=== PATIENT | male | born 1955 | race Caucasian/White ===

== ENCOUNTER 2020-11-12 16:55 | Outpatient (CLI) | payer BC, MEDICARE ==
[~2020-11-12 16:55] MED LIST: AMLO-211 PO; ASPI-963 PO; ATOR-2 PO; CARV-39 PO; CHOL10003 PO; DEXA4TAB66 PO; GLIM4TAB8 PO; HYDR-3343 PO; INSU100I28 INJ; LISI-170 PO; MAGN100T3 PO; MYCO500T3 PO; SITA1TAB5 PO; SODI650T PO; TACR1CAP5 PO
== END 2020-11-12 23:59 | disposition home or self-care (01) ==
LOC: RAD 16:55
PROVIDERS: ATTEND Internal Medicine Nephrology
DX: R60.9 Edema, unspecified (principal); I12.9 Hypertensive chronic kidney disease with stage 1 through stage 4 chronic kidney disease, or unspecified chronic kidney disease; E11.22 Type 2 diabetes mellitus with diabetic chronic kidney disease; E78.00 Pure hypercholesterolemia, unspecified; D64.9 Anemia, unspecified; N18.1 Chronic kidney disease, stage 1; D89.9 Disorder involving the immune mechanism, unspecified; Z94.0 Kidney transplant status
CPT/HCPCS: 93970

== ENCOUNTER 2020-12-03 09:32 | Inpatient (IN) | payer BC, MEDICARE ==
[~2020-12-03] VITALS: Ht 170.2 cm; Wt 91.0 kg
--- NOTE | 2020-12-03 09:49 | NUR ---
PT PLACED ON ALL MONITORING DEVICES IN ROOM. AT BS ASSISTED WITH PROVIDING HX OF SX. PT REPORTS OF LEG SWELLING SINCE 11/11, SEEN BY PROFESSOR OF VISUAL ARTS AT THAT TIME, NO NEW DIAGNOSES. SEEN AGAIN ON 11/30/20 FOR INCREASED LEG SWELLING AND SOB. PRESCRIBED LASIX. 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 PER TRIAGE, RA SAT 77%, PLACED ON 6LITERS OXYGEN VIA NC WITH SAT NOW AT 98%. ERP AT BS. CALL LIGHT WITHIN REACH.
--- NOTE | 2020-12-03 09:50 | NUR ---
RESP ISOLATION CART AND SIGNAGE IN PLACE. COVID TEST PENDING.
[2020-12-03] MEDS ORDERED: FURO40TA6 PO (09:58)
--- NOTE | 2020-12-03 10:30 | NUR ---
US AT BS. LABS DRAWN BY [email or web address].
[2020-12-03 10:34] LABS: RAPID INFLUENZA A Negative (Negative); RAPID INFLUENZA B Negative (Negative)
[2020-12-03 10:48] LABS: ALANINE AMINOTRANSFERASE 14 U/L (12-78); ALBUMIN 3.5 g/dL (3.4-5.0); ANION GAP 3 mmol/L (5-15); CALCIUM 9.2 mg/dL (8.5-10.1); CHLORIDE 104 mmol/L (98-107); CREATININE 1.12 mg/dL (0.7-1.3)
[2020-12-03 10:52] LABS: ALKALINE PHOSPHATASE 52 U/L (45-117); BILIRUBIN,TOTAL 0.9 mg/dL (0.2-1.0); TOTAL PROTEIN 5.9 g/dL (6.4-8.2); TROPONIN I < 0.015 ng/mL (0.000-0.045)
--- NOTE | 2020-12-03 10:55 | NUR ---
CONTINUE TO AWAIT LAB AND US RESULTS. PT COMFORTABLE AT THIS TIME. URINAL PROVIDED, WARM BLANKET OFFERED. VSS/UPDATED IN COMPUTER. O2 SAT AT 98% ON 6LITERS VIA NC. O2 REDUCED TO 3LITERS, CONTINUE TO MONITOR.
[2020-12-03 11:07] LABS: BASOPHILS % (AUTO) 1 % (0-1); EOSINOPHILS % (AUTO) 2 % (1-7); LYMPHOCYTES % (AUTO) 11 % (22-44); MEAN CORPUSCULAR HEMOGLOBIN 26.4 pg (27.5-34.5); MEAN CORPUSCULAR HGB CONC 31.9 g/dL (33.2-36.2); MEAN PLATELET VOLUME 8.2 fL (7.4-10.4); MONOCYTES % (AUTO) 10 % (2-9); NEUTROPHILS % (AUTO) 77 % (42-75); PLATELET COUNT 132 x10^3/uL (130-400); RED BLOOD COUNT 4.07 x10^6/uL (4.38-5.82); RED CELL DISTRIBUTION WIDTH 16.4 % (9.4-14.8)
--- NOTE | 2020-12-03 11:27 | NUR ---
IV PLACED FOR ADMISSION. BC X 1 DRAWN WITH IV START. PT AND UPDATED ON POC.
[2020-12-03 11:30] LABS: MD MORPH REVIEW ONLY
[2020-12-03 11:31] LABS: <PLATELET ESTIMATE> ADEQUATE; <PLT MORPHOLOGY> NORMAL PLT MORPH; ANISOCYTOSIS 1+; OVALOCYTES 1+
[2020-12-03] MEDS ORDERED: FUROSEMIDE 40 MG/4 ML ONE (11:51)
[2020-12-03] MEDS ORDERED: PLEASE ENTER WEIGHT MC SCH (12:00)
[2020-12-03] MEDS ORDERED: FUROSEMIDE 40 MG/4 ML IV ONE (12:00)
--- NOTE | 2020-12-03 12:03 | NUR ---
MEDS GIVEN PER ERP ORDER. [facility] IN TO SEE PT.
--- NOTE | 2020-12-03 12:19 | NUR ---
REPORT CALLED TO [facility] READY FOR TRANSPORT TO FLOOR.
--- NOTE | 2020-12-03 12:22 | NUR ---
ANA MARIA [phone]
[2020-12-03] MEDS ORDERED: TACROLIMUS 1 MG CAPSULE PO SCH (12:30)
[2020-12-03] MEDS ORDERED: POLYETHYLENE GLYCOL 17 GM PACKET PO PRN (12:30)
[2020-12-03] MEDS ORDERED: ONDANSETRON ODT 4 MG PO PRN (12:30)
[2020-12-03] MEDS ORDERED: MELATONIN 5 MG TABLET PO PRN (12:30)
[2020-12-03 12:43] LABS: BASOPHILS % (AUTO) 1 % (0-1); EOSINOPHILS % (AUTO) 2 % (1-7); LYMPHOCYTES % (AUTO) 13 % (22-44); MEAN CORPUSCULAR HEMOGLOBIN 25.8 pg (27.5-34.5); MEAN CORPUSCULAR HGB CONC 31.2 g/dL (33.2-36.2); MEAN PLATELET VOLUME 7.9 fL (7.4-10.4); MONOCYTES % (AUTO) 10 % (2-9); NEUTROPHILS % (AUTO) 75 % (42-75); PLATELET COUNT 139 x10^3/uL (130-400); RED CELL DISTRIBUTION WIDTH 16.5 % (9.4-14.8)
[2020-12-03 12:46] LABS: MD NO
[2020-12-03 13:01] VITALS: BP 131/70
[2020-12-03 15:54] VITALS: BP 175/90
[2020-12-03] MEDS: INSULIN LISPRO 100 UNITS/ML, PEN SQ-INSULIN SCH ×2 (16:00→20:18)
[2020-12-03] MEDS: HEPARIN 5,000 UNITS/ML, 1ML SQ SCH (16:00)
[2020-12-03 19:09] VITALS: BP 166/78
[2020-12-03] MEDS: CARVEDILOL 25 MG TABLET PO SCH (20:19)
[2020-12-03] MEDS: TACROLIMUS 1 MG CAPSULE PO SCH (20:19)
[2020-12-03] MEDS: INSULIN GLARGINE 100 UNITS/ML, PEN SQ-INSULIN SCH (20:19)
[2020-12-03] MEDS ORDERED: ATORVASTATIN 20 MG TABLET PO SCH (21:00)
[2020-12-04] VITALS (7 sets, daily range): BP systolic 147–184; BP diastolic 56–79
[2020-12-04] MEDS ORDERED: FUROSEMIDE 40 MG/4 ML ONE (00:49)
[2020-12-04] MEDS: HEPARIN 5,000 UNITS/ML, 1ML SQ SCH ×3 (00:56→17:19)
[2020-12-04] MEDS ORDERED: FUROSEMIDE 40 MG/4 ML IV ONE (01:00)
[2020-12-04 05:40] LABS: ALBUMIN 3.4 g/dL (3.4-5.0); ANION GAP 2 mmol/L (5-15); CALCIUM 9.3 mg/dL (8.5-10.1); CHLORIDE 103 mmol/L (98-107)
[2020-12-04 05:53] LABS: ALANINE AMINOTRANSFERASE 15 U/L (12-78); ALKALINE PHOSPHATASE 55 U/L (45-117); BILIRUBIN,TOTAL 0.9 mg/dL (0.2-1.0); CREATININE 1.11 mg/dL (0.7-1.3); TOTAL PROTEIN 5.9 g/dL (6.4-8.2)
[2020-12-04] MEDS: hydrALAzine 20 MG/ML, 1ML IVPush PRN ×2 (06:00→22:56)
[2020-12-04 06:55] LABS: BASOPHILS % (AUTO) 1 % (0-1); EOSINOPHILS % (AUTO) 1 % (1-7); LYMPHOCYTES % (AUTO) 12 % (22-44); MEAN CORPUSCULAR HGB CONC 31.5 g/dL (33.2-36.2); MEAN PLATELET VOLUME 8.2 fL (7.4-10.4); MONOCYTES % (AUTO) 10 % (2-9); NEUTROPHILS % (AUTO) 76 % (42-75); PLATELET COUNT 131 x10^3/uL (130-400); RED BLOOD COUNT 4.22 x10^6/uL (4.38-5.82); RED CELL DISTRIBUTION WIDTH 16.2 % (9.4-14.8)
[2020-12-04 07:08] LABS: INTERNATIONAL NORMALIZED RATIO 1.05 (0.93-1.1); PROTHROMBIN TIME 11.2 Seconds (9.6-11.5)
[2020-12-04 07:39] LABS: MD SCAN
[2020-12-04] MEDS: FUROSEMIDE 40 MG/4 ML IV SCH (09:10)
[2020-12-04] MEDS: TACROLIMUS 1 MG CAPSULE PO SCH ×2 (09:12→22:55)
[2020-12-04] MEDS: CHOLECALCIFEROL 5,000u TAB PO SCH (09:12)
[2020-12-04] MEDS: LISINOPRIL 40 MG TABLET PO SCH (09:13)
[2020-12-04] MEDS: CLOPIDOGREL 75 MG TABLET PO SCH (09:13)
[2020-12-04] MEDS: ASPIRIN 81 MG TABLET CHEW PO SCH (09:13)
[2020-12-04] MEDS: CARVEDILOL 25 MG TABLET PO SCH (09:13)
[2020-12-04] MEDS: INSULIN LISPRO 100 UNITS/ML, PEN SQ-INSULIN SCH ×4 (09:15→22:53)
[2020-12-04] MEDS: INSULIN GLARGINE 100 UNITS/ML, PEN SQ-INSULIN SCH (21:26)
[2020-12-04] MEDS: ATORVASTATIN 80 MG TABLET PO SCH (22:46)
[2020-12-05 00:05] VITALS: BP 170/61
[2020-12-05] MEDS: HEPARIN 5,000 UNITS/ML, 1ML SQ SCH ×3 (01:31→22:07)
[2020-12-05] MEDS: ACETAMINOPHEN 325 MG TABLET PO PRN (04:02)
[2020-12-05 05:30] LABS: BASOPHILS % (AUTO) 1 % (0-1); EOSINOPHILS % (AUTO) 2 % (1-7); LYMPHOCYTES % (AUTO) 13 % (22-44); MEAN CORPUSCULAR HEMOGLOBIN 26.4 pg (27.5-34.5); MEAN CORPUSCULAR HGB CONC 31.8 g/dL (33.2-36.2); MEAN PLATELET VOLUME 7.6 fL (7.4-10.4); MONOCYTES % (AUTO) 13 % (2-9); NEUTROPHILS % (AUTO) 72 % (42-75); PLATELET COUNT 148 x10^3/uL (130-400); RED BLOOD COUNT 4.17 x10^6/uL (4.38-5.82); RED CELL DISTRIBUTION WIDTH 16.2 % (9.4-14.8)
[2020-12-05 05:33] LABS: ALANINE AMINOTRANSFERASE 12 U/L (12-78); ALBUMIN 3.3 g/dL (3.4-5.0); ANION GAP 1 mmol/L (5-15); CALCIUM 9.4 mg/dL (8.5-10.1); CHLORIDE 105 mmol/L (98-107)
[2020-12-05 05:34] LABS: MD NO
[2020-12-05 05:35] LABS: ALKALINE PHOSPHATASE 49 U/L (45-117); BILIRUBIN,TOTAL 0.8 mg/dL (0.2-1.0); TOTAL PROTEIN 5.6 g/dL (6.4-8.2)
[2020-12-05] MEDS: INSULIN LISPRO 100 UNITS/ML, PEN SQ-INSULIN SCH ×4 (07:00→22:13)
[2020-12-05 07:48] VITALS: BP 156/80
[2020-12-05 09:34] VITALS: BP 169/82
[2020-12-05] MEDS: ASPIRIN 81 MG TABLET CHEW PO SCH (09:35)
[2020-12-05] MEDS: CHOLECALCIFEROL 5,000u TAB PO SCH (09:35)
[2020-12-05] MEDS: LISINOPRIL 40 MG TABLET PO SCH (09:35)
[2020-12-05] MEDS: TACROLIMUS 1 MG CAPSULE PO SCH ×2 (09:35→22:07)
[2020-12-05] MEDS: FUROSEMIDE 40 MG/4 ML IV SCH (09:35)
[2020-12-05] MEDS: CLOPIDOGREL 75 MG TABLET PO SCH (09:35)
[2020-12-05] MEDS ORDERED: DIVALPROEX 500 MG TABLET.DR PO ONE (12:00)
[2020-12-05 12:38] LABS: LDL/HDL RATIO 1.4 (0.5-3.0)
[2020-12-05 13:37] VITALS: BP 173/85
[2020-12-05] MEDS ORDERED: GADOTERATE 10 MMOL/20 ML VIAL ONE (17:45)
[2020-12-05 19:00] VITALS: BP 162/80
[2020-12-05 19:16] VITALS: BP 168/75
[2020-12-05] MEDS: ATORVASTATIN 80 MG TABLET PO SCH (22:07)
[2020-12-05] MEDS: INSULIN GLARGINE 100 UNITS/ML, PEN SQ-INSULIN SCH (22:36)
[2020-12-06 02:14] VITALS: BP 173/81
[2020-12-06 05:51] LABS: BASOPHILS % (AUTO) 1 % (0-1); EOSINOPHILS % (AUTO) 3 % (1-7); LYMPHOCYTES % (AUTO) 16 % (22-44); MEAN CORPUSCULAR HEMOGLOBIN 26.2 pg (27.5-34.5); MEAN CORPUSCULAR HGB CONC 31.7 g/dL (33.2-36.2); MEAN PLATELET VOLUME 7.7 fL (7.4-10.4); MONOCYTES % (AUTO) 16 % (2-9); NEUTROPHILS % (AUTO) 64 % (42-75); PLATELET COUNT 146 x10^3/uL (130-400); RED BLOOD COUNT 4.18 x10^6/uL (4.38-5.82); RED CELL DISTRIBUTION WIDTH 16.2 % (9.4-14.8)
[2020-12-06 05:57] LABS: ALANINE AMINOTRANSFERASE 12 U/L (12-78); ALBUMIN 3.2 g/dL (3.4-5.0); ANION GAP 3 mmol/L (5-15); CALCIUM 9.6 mg/dL (8.5-10.1); CHLORIDE 104 mmol/L (98-107); CREATININE 1.03 mg/dL (0.7-1.3)
[2020-12-06 05:58] LABS: MD NO
[2020-12-06 05:59] LABS: ALKALINE PHOSPHATASE 47 U/L (45-117); BILIRUBIN,TOTAL 0.7 mg/dL (0.2-1.0); TOTAL PROTEIN 5.7 g/dL (6.4-8.2)
[2020-12-06] MEDS: HEPARIN 5,000 UNITS/ML, 1ML SQ SCH ×2 (06:18→16:23)
[2020-12-06 06:44] VITALS: BP 153/72
[2020-12-06] MEDS: INSULIN LISPRO 100 UNITS/ML, PEN SQ-INSULIN SCH ×4 (07:00→20:27)
[2020-12-06] MEDS: TACROLIMUS 1 MG CAPSULE PO SCH ×2 (08:43→20:25)
[2020-12-06] MEDS: FUROSEMIDE 40 MG/4 ML IV SCH (08:43)
[2020-12-06] MEDS: LISINOPRIL 40 MG TABLET PO SCH (08:44)
[2020-12-06] MEDS: CLOPIDOGREL 75 MG TABLET PO SCH (08:44)
[2020-12-06] MEDS: ASPIRIN 81 MG TABLET CHEW PO SCH (08:44)
[2020-12-06] MEDS: CHOLECALCIFEROL 5,000u TAB PO SCH (08:44)
[2020-12-06 13:32] VITALS: BP 159/74
[2020-12-06 20:07] VITALS: BP 155/72
[2020-12-06] MEDS: DIVALPROEX 500 MG TABLET.DR PO SCH (20:25)
[2020-12-06] MEDS: ATORVASTATIN 80 MG TABLET PO SCH (20:25)
[2020-12-06] MEDS: INSULIN GLARGINE 100 UNITS/ML, PEN SQ-INSULIN SCH (20:26)
[2020-12-07] VITALS (8 sets, daily range): BP systolic 107–159; BP diastolic 53–76
[2020-12-07] MEDS: HEPARIN 5,000 UNITS/ML, 1ML SQ SCH ×2 (00:15→08:02)
[2020-12-07] MEDS: ACETAMINOPHEN 325 MG TABLET PO PRN (00:18)
[2020-12-07] MEDS: FUROSEMIDE 40 MG/4 ML IV SCH (08:01)
[2020-12-07] MEDS: INSULIN LISPRO 100 UNITS/ML, PEN SQ-INSULIN SCH ×4 (08:01→21:01)
[2020-12-07] MEDS: LISINOPRIL 40 MG TABLET PO SCH (08:01)
[2020-12-07] MEDS: ASPIRIN 81 MG TABLET CHEW PO SCH (08:02)
[2020-12-07] MEDS: CHOLECALCIFEROL 5,000u TAB PO SCH (08:02)
[2020-12-07] MEDS: TACROLIMUS 1 MG CAPSULE PO SCH ×2 (08:02→20:58)
[2020-12-07] MEDS ORDERED: AMIODARONE 150 MG in DEXTROSE 5% 100 ML IV ONE ×2 (09:30→17:00)
[2020-12-07] MEDS ORDERED: NITROGLYCERIN 0.4 MG BOTTLE (25 TABS) SL ONE (09:39)
[2020-12-07] MEDS: AMIODARONE 450 MG in DEXTROSE 5% 241 ML IV PRN (09:52)
[2020-12-07] MEDS: NITROGLYCERIN 0.4 MG BOTTLE (25 TABS) SL PRN ×2 (09:57→10:08)
[2020-12-07] MEDS ORDERED: FILTER 0.22 MICRON IV PRN (10:00)
[2020-12-07] MEDS ORDERED: MORPHINE SULFATE 4 MG/ML, 1ML IVPush ONE (10:30)
[2020-12-07 11:11] LABS: BASOPHILS % (AUTO) 1 % (0-1); EOSINOPHILS % (AUTO) 2 % (1-7); LYMPHOCYTES % (AUTO) 8 % (22-44); MEAN CORPUSCULAR HGB CONC 31.5 g/dL (33.2-36.2); MEAN PLATELET VOLUME 7.6 fL (7.4-10.4); MONOCYTES % (AUTO) 10 % (2-9); NEUTROPHILS % (AUTO) 78 % (42-75); PLATELET COUNT 111 x10^3/uL (130-400); RED BLOOD COUNT 4.22 x10^6/uL (4.38-5.82); RED CELL DISTRIBUTION WIDTH 16.2 % (9.4-14.8)
[2020-12-07 11:13] LABS: MD NO
[2020-12-07 11:22] LABS: ANION GAP 6 mmol/L (5-15); CALCIUM 9.5 mg/dL (8.5-10.1); CHLORIDE 104 mmol/L (98-107)
[2020-12-07 11:26] LABS: TROPONIN I < 0.015 ng/mL (0.000-0.045)
[2020-12-07] MEDS ORDERED: AMIODARONE 50 MG/ML, 3ML IVPush ONE (16:30)
[2020-12-07] MEDS: METOPROLOL TARTRATE 25 MG TAB PO SCH (17:25)
[2020-12-07] MEDS: DIVALPROEX 500 MG TABLET.DR PO SCH (20:57)
[2020-12-07] MEDS: ATORVASTATIN 80 MG TABLET PO SCH (20:58)
[2020-12-07] MEDS: APIXABAN 5 MG TABLET PO SCH (20:58)
[2020-12-07] MEDS: INSULIN GLARGINE 100 UNITS/ML, PEN SQ-INSULIN SCH (21:01)
[2020-12-08] MEDS: AMIODARONE 450 MG in DEXTROSE 5% 241 ML IV PRN (00:38)
[2020-12-08] MEDS: ACETAMINOPHEN 325 MG TABLET PO PRN ×2 (00:53→20:00)
[2020-12-08 01:11] VITALS: BP 136/66
[2020-12-08] MEDS: METOPROLOL TARTRATE 25 MG TAB PO SCH ×2 (05:29→18:41)
[2020-12-08 06:00] LABS: BASOPHILS % (AUTO) 1 % (0-1); EOSINOPHILS % (AUTO) 3 % (1-7); LYMPHOCYTES % (AUTO) 15 % (22-44); MEAN CORPUSCULAR HGB CONC 31.6 g/dL (33.2-36.2); MEAN PLATELET VOLUME 8.2 fL (7.4-10.4); MONOCYTES % (AUTO) 17 % (2-9); NEUTROPHILS % (AUTO) 65 % (42-75); PLATELET COUNT 122 x10^3/uL (130-400); RED BLOOD COUNT 4.12 x10^6/uL (4.38-5.82); RED CELL DISTRIBUTION WIDTH 16.2 % (9.4-14.8)
[2020-12-08 06:03] LABS: ANION GAP 5 mmol/L (5-15); CALCIUM 9.4 mg/dL (8.5-10.1); CHLORIDE 107 mmol/L (98-107); CREATININE 1.03 mg/dL (0.7-1.3)
[2020-12-08 06:09] LABS: MD NO
[2020-12-08] MEDS: INSULIN LISPRO 100 UNITS/ML, PEN SQ-INSULIN SCH ×4 (07:52→20:02)
[2020-12-08] MEDS ORDERED: REGADENOSON 0.4 MG/5 ML SYRINGE ONE (08:02)
[2020-12-08 08:38] VITALS: BP 169/76
[2020-12-08] MEDS: CHOLECALCIFEROL 5,000u TAB PO SCH (11:20)
[2020-12-08] MEDS: LISINOPRIL 40 MG TABLET PO SCH (11:21)
[2020-12-08] MEDS: APIXABAN 5 MG TABLET PO SCH ×2 (11:21→20:01)
[2020-12-08] MEDS: TACROLIMUS 1 MG CAPSULE PO SCH ×2 (11:21→20:35)
[2020-12-08] MEDS: AMIODARONE 200 MG TABLET PO SCH ×2 (11:22→20:01)
[2020-12-08] MEDS: FUROSEMIDE 40 MG/4 ML IV SCH (11:22)
[2020-12-08 16:15] VITALS: BP 178/83
[2020-12-08] MEDS: ATORVASTATIN 80 MG TABLET PO SCH (20:00)
[2020-12-08] MEDS: DIVALPROEX 500 MG TABLET.DR PO SCH (20:01)
[2020-12-08] MEDS: INSULIN GLARGINE 100 UNITS/ML, PEN SQ-INSULIN SCH (20:02)
[2020-12-08 20:26] VITALS: BP 150/66
[2020-12-09 01:25] VITALS: BP 146/76
[2020-12-09] MEDS: ACETAMINOPHEN 325 MG TABLET PO PRN ×2 (01:47→12:00)
[2020-12-09] MEDS: METOPROLOL TARTRATE 25 MG TAB PO SCH (05:01)
[2020-12-09 05:15] LABS: BASOPHILS % (AUTO) 1 % (0-1); EOSINOPHILS % (AUTO) 2 % (1-7); LYMPHOCYTES % (AUTO) 15 % (22-44); MEAN CORPUSCULAR HEMOGLOBIN 26.2 pg (27.5-34.5); MEAN PLATELET VOLUME 8.2 fL (7.4-10.4); MONOCYTES % (AUTO) 16 % (2-9); NEUTROPHILS % (AUTO) 67 % (42-75); PLATELET COUNT 129 x10^3/uL (130-400); RED CELL DISTRIBUTION WIDTH 15.7 % (9.4-14.8)
[2020-12-09 05:24] LABS: ANION GAP 3 mmol/L (5-15); CALCIUM 9.4 mg/dL (8.5-10.1); CHLORIDE 108 mmol/L (98-107); CREATININE 1.04 mg/dL (0.7-1.3)
[2020-12-09 05:29] LABS: MD NO
[2020-12-09] MEDS: INSULIN LISPRO 100 UNITS/ML, PEN SQ-INSULIN SCH ×2 (07:00→11:00)
[2020-12-09 08:04] VITALS: BP 159/77
[2020-12-09] MEDS: LISINOPRIL 40 MG TABLET PO SCH (08:09)
[2020-12-09] MEDS: TACROLIMUS 1 MG CAPSULE PO SCH (08:09)
[2020-12-09] MEDS: CHOLECALCIFEROL 5,000u TAB PO SCH (08:09)
[2020-12-09] MEDS: FUROSEMIDE 40 MG/4 ML IV SCH (08:09)
[2020-12-09] MEDS: AMIODARONE 200 MG TABLET PO SCH (08:09)
[2020-12-09] MEDS: APIXABAN 5 MG TABLET PO SCH (08:09)
[2020-12-09] MEDS ORDERED: AMIO200T42 PO (12:12)
[2020-12-09] MEDS ORDERED: ATOR-2 PO (12:12)
[2020-12-09] MEDS ORDERED: INSU100I28 INJ (12:12)
[2020-12-09] MEDS ORDERED: APIX5TAB PO (12:12)
[2020-12-09] MEDS ORDERED: METO-282 PO (12:12)
[2020-12-09] MEDS ORDERED: DIVA-61 PO (12:12)
[2020-12-09] MEDS ORDERED: FURO40TA6 PO (12:12)
== END 2020-12-09 13:59 | disposition home health service (06) | DRG 291 ==
LOC: ED 10:51 → EDIP 11:43 → SUATTDRO 11:51 → 5SO 12:44 → DCLOUNGE 12-09 13:53
PROVIDERS: ADMIT Hospitalist; ATTEND Family Medicine
DX: I11.0 Hypertensive heart disease with heart failure (principal); G93.41 Metabolic encephalopathy; J96.01 Acute respiratory failure with hypoxia; I50.31 Acute diastolic (congestive) heart failure; J96.02 Acute respiratory failure with hypercapnia; E87.2 Acidosis; I31.3 Pericardial effusion (noninflammatory); I48.20 Chronic atrial fibrillation, unspecified; Q21.1 Atrial septal defect; Q87.81 Alport syndrome; Z94.0 Kidney transplant status; D69.3 Immune thrombocytopenic purpura; R47.01 Aphasia; D64.9 Anemia, unspecified; E11.65 Type 2 diabetes mellitus with hyperglycemia; E78.5 Hyperlipidemia, unspecified; I27.20 Pulmonary hypertension, unspecified; Z79.02 Long term (current) use of antithrombotics/antiplatelets; Z79.82 Long term (current) use of aspirin; Z79.899 Other long term (current) drug therapy; Z85.828 Personal history of other malignant neoplasm of skin; Z87.891 Personal history of nicotine dependence; E66.9 Obesity, unspecified; Z68.31 Body mass index [BMI] 31.0-31.9, adult; R56.9 Unspecified convulsions; Z86.73 Personal history of transient ischemic attack (TIA), and cerebral infarction without residual deficits; Z20.822 Contact with and (suspected) exposure to COVID-19
CPT/HCPCS: 36415; 36600; 87400; 96374; 99285; A9575; 70450; 70544; 70549; 70553; 71045; 78452; 78580; 80048; 80053; 80061; 82728; 82803; 82962; 83036; 83540; 83550; 83605; 83735; 83880; 84100; 84443; 84466; 84484; 85025; 85379; 85610; 85730; 87040; 93005; 93017; 93306; 93880; 93970; 95819; G0378; J1644; J1940; J2785; J7060; J7507; J7517; 92523-GN; A9502; A9540; J0282; J0360; J1815; U0003